=== PATIENT | female | born 1990 | race African-American/Black ===

== ENCOUNTER → 2017-03-22 | Outpatient (CLI) | payer OTHER ==
[2017-03-24 14:01] LABS: ANTITHROMBIN III ACTIVITY 104 % (75-135)
[2017-03-25 08:42] LABS: DILUTE RUSSELL VIPOR VENOM 34.5 sec (0.0-47.0); HEXAGONAL PHASE PHOSPHOLIPID 4 sec (0-11); THROMBIN TIME 16.7 sec (0.0-20.9)
[2017-03-25 10:56] LABS: BETA-2 GLYCOPROTEIN I IGA AB <9 (0-25)
[2017-03-25 10:58] LABS: LUPUS PANEL INTERPRETATION Comment: (.); PTT-LA 46.1 sec (0.0-43.6); PTT-LA MIX 42.4 sec (0.0-40.6)
== END ==
LOC: OD 16:27
PROVIDERS: ATTEND Specialist
DX: N96 Recurrent pregnancy loss (principal)
CPT/HCPCS: 36415; 81241; 83520; 85300; 85301; 86146; 86225; 86235

== ENCOUNTER 2017-06-02 22:28 | Outpatient (CLI) | payer OTHER ==
[2017-06-02 22:55] LABS: APPEARANCE,URINE CLEAR; BILIRUBIN,URINE NEGATIVE (NEGATIVE); GLUCOSE, URINE NEGATIVE (NEGATIVE); KETONES,URINE NEGATIVE (NEGATIVE); LEUKOCYTE ESTERASE,URINE NEGATIVE (NEGATIVE); NITRITE,URINE NEGATIVE (NEGATIVE); PROTEIN,URINE NEGATIVE (NEGATIVE); URINE SPECIFIC GRAVITY 1.004; UROBILINOGEN,URINE NEGATIVE mg/dL (<2.0)
[2017-06-02 23:08] LABS: URINE BARBITURATES SCREEN NEGATIVE; URINE METHADONE SCREEN NEGATIVE; URINE OPIATES LOW NEGATIVE; URINE PHENCYCLIDINE SCREEN NEGATIVE
--- NOTE | 2017-06-03 00:23 | Non Stress Test Report ---
Non Stress Test Datetime Report Generated by CPN: 06/03/2017 00:23 DEMOGRAPHIC EGA NST: 33.4 INDICATION Indication for Study: Ordered by Provider MONITORING Monitor Explained: Monitor Explained; Test Explained; Patient Verbalized Understanding Time on Monitor: 06/02/2017 22:42 Time off Monitor: 06/02/2017 23:39 NST Duration: 57 NST INTERVENTIONS NST Interventions: Reposition Patient Physician Notified NST: Dr. Harper BABY A: [id number] BABY A Movement : Present Contraction Frequency : none FHR Baseline : 145 Accelerations : 15X15 Decelerations : None Variability : Moderate 6-25bpm NST Review: Meets Criteria for Reactive NST NST Review and Verified By : Triny Bourgeois, RN NST Results: Reactive NST REPORT Report Trigger: Send Report
--- NOTE | 2017-06-03 00:36 | RADIOLOGY REPORT (SQ) ---
EXAM DESCRIPTION: U/S OB LIMITED COMPLETED DATE/TIME: 06/02/2017 11:59 pm REASON FOR STUDY: cervical length COMPARISON: None. TECHNIQUE: Limited transvaginal and transabdominal grayscale ultrasound for evaluation of specific r equested obstetrical parameters. LIMITATIONS: None. FINDINGS: CERVICAL LENGTH: 3.8 cm Closed. FHR: 152 beats per minute. PRESENTATION: Cephalic. OTHER: No other significant findings. IMPRESSION: LIMITED OBSTETRICAL ULTRASOUND WITH MEASURED PARAMETERS DELINEATED ABOVE. Trimester of : Third trimester - 28 weeks to delivery. TECHNICAL DOCUMENTATION: JOB ID: [id number] [employer]- All Rights Reserved
== END 2017-06-03 00:31 | disposition home or self-care (01) ==
LOC: LC 22:28
PROVIDERS: ATTEND Student in an Organized Health Care Education/Training Program
PROC: 4A1HXCZ Monitoring of Products of Conception, Cardiac Rate, External Approach (ICD-10-PCS; principal; 2017-06-02)
DX: O47.03 False labor before 37 completed weeks of gestation, third trimester (principal); Z3A.33 33 weeks gestation of pregnancy
CPT/HCPCS: 59025; 76815; 80307; 81001

== ENCOUNTER 2017-07-09 09:13 | Outpatient (CLI) | payer OTHER ==
[2017-07-09 10:12] LABS: APPEARANCE,URINE SLIGHTLY-CLOUDY; BILIRUBIN,URINE NEGATIVE (NEGATIVE); GLUCOSE, URINE NEGATIVE (NEGATIVE); KETONES,URINE NEGATIVE (NEGATIVE); LEUKOCYTE ESTERASE,URINE NEGATIVE (NEGATIVE); NITRITE,URINE NEGATIVE (NEGATIVE); PROTEIN,URINE NEGATIVE (NEGATIVE); UROBILINOGEN,URINE NEGATIVE mg/dL (<2.0)
--- NOTE | 2017-07-09 10:40 | Non Stress Test Report ---
Non Stress Test Datetime Report Generated by CPN: 07/09/2017 10:40 DEMOGRAPHIC EGA NST: 38.6 INDICATION Indication for Study: Other Indication for Study (NST) Other: blood clot x1 MONITORING Monitor Explained: Monitor Explained; Test Explained; Patient Verbalized Understanding Time on Monitor: 07/09/2017 09:38 Time off Monitor: 07/09/2017 10:39 NST Duration: 61 NST INTERVENTIONS NST Interventions: None BABY A: [id number] BABY A Movement : Present Contraction Frequency : rare FHR Baseline : 145 Accelerations : 15X15 Decelerations : None Variability : Moderate 6-25bpm NST Review: Meets Criteria for Reactive NST NST Review and Verified By : HCeci Melly, RN NST Results: Reactive NST REPORT Report Trigger: Send Report
[2017-07-09 10:52] LABS: URINE BARBITURATES SCREEN NEGATIVE; URINE METHADONE SCREEN NEGATIVE; URINE OPIATES LOW NEGATIVE; URINE PHENCYCLIDINE SCREEN NEGATIVE
== END 2017-07-09 10:49 | disposition home or self-care (01) ==
LOC: LC 09:13
PROVIDERS: ATTEND Obstetrics & Gynecology
PROC: 4A1HXCZ Monitoring of Products of Conception, Cardiac Rate, External Approach (ICD-10-PCS; principal; 2017-07-09)
DX: O88.213 Thromboembolism in pregnancy, third trimester (principal); Z3A.38 38 weeks gestation of pregnancy
CPT/HCPCS: 59025; 80307; 81005

== ENCOUNTER 2017-07-11 06:16 | Inpatient (IN) | payer OTHER ==
[2017-07-08 12:28] LABS: ABSOLUTE EOSINOPHILS # (AUTO) 0.2 10^3/uL (0.0-0.6); ABSOLUTE LYMPHOCYTES (AUTO) 1.3 10^3/uL (0.5-4.7); BASOPHILS % (AUTO) 0.1 % (0-2); EOSINOPHILS % (AUTO) 1.7 % (0-6); HEMATOCRIT 33.8 % (36.0-47.0); HEMOGLOBIN 11.4 g/dL (12.0-15.5); HGB HCT DIFFERENCE 0.4; LYMPHOCYTES % (AUTO) 13.5 % (13-45); MEAN CORPUSCULAR HGB CONC 33.8 g/dL (32.0-36.0); MEAN CORPUSCULAR VOLUME 80 fl (80-97); MONOCYTES % (AUTO) 10.4 % (3-13); RED BLOOD COUNT 4.23 10^6/uL (3.72-5.28); SEGMENTED NEUTROPHILS % (AUTO) 74.3 % (42-78); WHITE BLOOD COUNT 9.4 10^3/uL (4.0-10.5)
[2017-07-08 12:30] LABS: APPEARANCE,URINE CLEAR; BILIRUBIN,URINE NEGATIVE (NEGATIVE); GLUCOSE, URINE NEGATIVE (NEGATIVE); KETONES,URINE NEGATIVE (NEGATIVE); LEUKOCYTE ESTERASE,URINE NEGATIVE (NEGATIVE); NITRITE,URINE NEGATIVE (NEGATIVE); PROTEIN,URINE NEGATIVE (NEGATIVE); URINE SPECIFIC GRAVITY 1.006; UROBILINOGEN,URINE NEGATIVE mg/dL (<2.0)
[2017-07-08 12:50] LABS: URINE BARBITURATES SCREEN NEGATIVE; URINE METHADONE SCREEN NEGATIVE; URINE OPIATES LOW NEGATIVE; URINE PHENCYCLIDINE SCREEN NEGATIVE
[~2017-07-11 06:16] MED LIST: LACTATED RINGERS 1000 ML IV PRN; LIDOCAINE 0.5% INJ-PF (5 MG/ML) 50 ML SDV SUBCUT PRN
[2017-07-11] MEDS ORDERED: RINGERS SOLUTION,LACTATED 1,000 ML IV PRN (07:11)
[2017-07-11] MEDS ORDERED: CEFAZOLIN 1 GM/D5W RTU 1 GM/50 ML RTUPB IV PRN (07:14)
[2017-07-11] MEDS ORDERED: INFLUENZA ADLT QUAD (36MOS+) 2017-18 VAC 0.5 ML SYR IM PRN (07:57)
[2017-07-11] MEDS ORDERED: RINGERS SOLUTION,LACTATED 1,500 ML IV PRN (08:10)
[2017-07-11] MEDS ORDERED: MORPHINE SULFATE 10 MG/ML INJ IV PRN (08:52)
[2017-07-11] MEDS ORDERED: FENTANYL CITRATE INJ/PF 100 MCG/2 ML AMPUL IV PRN ×3 (08:52)
[2017-07-11] MEDS ORDERED: PROMETHAZINE HCL INJ 25 MG/1 ML VIAL IV PRN ×2 (08:52)
[2017-07-11] MEDS ORDERED: MEPERIDINE HCL/PF INJ 25 MG/1 ML DISP.SYRIN IV PRN (08:52)
[2017-07-11] MEDS ORDERED: ONDANSETRON HCL INJ/PF 4 MG/2 ML SDV IV PRN ×2 (08:52→14:27)
[2017-07-11] MEDS ORDERED: DIPHENHYDRAMINE HCL 50 MG/ML VIAL IV PRN (08:52)
[2017-07-11] MEDS ORDERED: EPHEDRINE SULFATE INJ 50 MG/1 ML AMPULE ONE (09:00)
[2017-07-11] MEDS ORDERED: OXYTOCIN/NORMAL SALINE 20 UNIT/1,000 ML RTUINJ ONE (09:00)
[2017-07-11] MEDS ORDERED: OXYTOCIN 10 UNIT/ML VIAL ONE (09:00)
[2017-07-11] MEDS ORDERED: MIDAZOLAM 2 MG/2 ML INJ ONE (09:01)
[2017-07-11] MEDS ORDERED: FENTANYL CITRATE INJ/PF 100 MCG/2 ML AMPUL ONE ×2 (09:01→11:40)
[2017-07-11] MEDS ORDERED: ACETAMINOPHEN 100 ML IV ONE (09:15)
[2017-07-11] MEDS ORDERED: ONDANSETRON HCL INJ/PF 4 MG/2 ML SDV ONE ×2 (10:39→13:56)
[2017-07-11] MEDS ORDERED: OXYTOCIN/NORMAL SALINE 20 UNIT/1,000 ML RTUINJ INJ PRN (10:46)
--- NOTE | 2017-07-11 10:58 | OPERATIVE REPORT E ---
Operative Report NAME: LORA GONZALEZ : 1990 AGE: 26Y DATE OF SURGERY: 07/11/2017 ROOM: 219 PREOPERATIVE DIAGNOSES: 1. A 39-week intrauterine . 2. History of section for repeat. POSTOPERATIVE DIAGNOSES: 1. A 39-week intrauterine . 2. History of section for repeat. SURGEON: Real Lambert D.O. MEDIA SUPERVISOR: None. PROCEDURE: Repeat low transverse section. ANESTHESIA: Spinal. COMPLICATIONS: None. PATHOLOGY: None. ESTIMATED BLOOD LOSS: 600 mL. FINDINGS: 1. Viable male infant at 9:45 a.m. on 07/11/2017. Apgars 8 at one, 9 at five. 2. Normal-appearing bilateral fallopian tubes and ovaries. DESCRIPTION OF PROCEDURE: The patient was taken to the operating room where a spinal anesthesia was administered. Once this was done, she was placed in the dorsal supine position with a leftward tilt upon the operating room table. She was then prepped and draped in a normal sterile fashion. A scalpel was then used to make a Pfannenstiel skin incision. The skin incision was carried down through subcutaneous tissue to the layer of the fascia. The fascia was then incised midline. Fascial incision was then extended bilaterally using the Bovie cautery. The superior fascial edge was grasped with Feroz clamps, elevated, and the rectus muscle was dissected off sharply and bluntly. Attention was then turned to the inferior fascial edge, which was grasped with Feroz clamps, elevated, and the rectus muscle was dissected off sharply and bluntly. Rectus muscles were then in the midline, peritoneum identified and entered bluntly with the surgeon's hands. A bladder blade was then inserted. A scalpel was then used to make a low transverse hysterotomy incision. The was found to be in cephalic position and delivered through this incision without difficulty and atraumatically. The nose and mouth were suctioned. Cord was clamped and cut, and the was handed off to the awaiting nurses. Cord blood was obtained. The placenta was then manually removed from the uterus. The uterus was then exteriorized and cleared of all clots and debris. The hysterotomy incision was then reapproximated using 2 layers of 1-0 Vicryl in a running, locking fashion. Following closure of the second layer, excellent hemostasis was noted. The uterus was then returned to the abdomen. The bilateral pericolic gutters were irrigated and cleared of all clots and debris. Again, the hysterotomy incision was reinspected and found to have excellent hemostasis. The rectus muscles were then reapproximated using 1-0 Vicryl interrupted sutures. The fascia was then closed using 1-0 Vicryl in a running, non-locking fashion. The subcutaneous tissue space was then made hemostatic using Bovie cautery. The skin was then closed with absorbable isabella, covered with an OpSite and then with a pressure dressing. At this point in time, the procedure was terminated. All sponge, lap, and needle counts were correct x2. The patient tolerated the procedure well. The patient was taken to the recovery room in stable condition. DICTATING PHYSICIAN: Real Lambert DO [id number] PHY#: [id number] ID: [id number] JOB#: [id number] ACCT: [id number] cc:Real Lambert D.O. >
[2017-07-11] MEDS ORDERED: OXYCODONE-ACETAMINOPHEN 5-325 MG TABLET PO PRN (11:00)
[2017-07-11] MEDS ORDERED: ACETAMINOPHEN 325 MG TABLET PO PRN (11:00)
[2017-07-11] MEDS ORDERED: PROMETHAZINE HCL INJ 25 MG/1 ML VIAL IM PRN (11:00)
[2017-07-11] MEDS ORDERED: MEASLES,MUMPS&RUBELLA VACC/PF 0.5 ML VIAL SUBCUT PRN (11:00)
[2017-07-11] MEDS ORDERED: DIPH/PERTUSS(ACELL)/TETANUS VAC/PF 0.5 ML SYR (>=10YO) IM PRN (11:00)
[2017-07-11] MEDS ORDERED: RINGERS SOLUTION,LACTATED 1,000 ML IV SCH (11:00)
[2017-07-11] MEDS ORDERED: SIMETHICONE 80 MG TAB.CHEW PO PRN (11:00)
[2017-07-11] MEDS ORDERED: HYDROMORPHONE HCL INJ/PF 2 MG/ML AMPULE IV PRN (11:00)
[2017-07-11] MEDS ORDERED: KETOROLAC TROMETHAMINE INJ/PF 30 MG/1 ML SDV IV ONE (11:30)
[2017-07-11] MEDS ORDERED: KETOROLAC TROMETHAMINE INJ/PF 30 MG/1 ML SDV ONE (11:57)
[2017-07-11] MEDS: OXYCODONE-ACETAMINOPHEN 5-325 MG TABLET PO PRN ×3 (13:56→23:34)
[2017-07-11] MEDS: KETOROLAC TROMETHAMINE INJ/PF 30 MG/1 ML SDV IV SCH (17:36)
[2017-07-11] MEDS: DOCUSATE SODIUM 100 MG CAPSULE PO SCH (17:36)
[2017-07-12] MEDS: KETOROLAC TROMETHAMINE INJ/PF 30 MG/1 ML SDV IV SCH (01:26)
[2017-07-12] MEDS: OXYCODONE-ACETAMINOPHEN 5-325 MG TABLET PO PRN ×5 (03:35→23:44)
[2017-07-12 06:09] LABS: HEMATOCRIT 27.8 % (36.0-47.0); HEMOGLOBIN 9.6 g/dL (12.0-15.5); MEAN CORPUSCULAR HEMOGLOBIN 27.3 pg (27.0-33.4); MEAN CORPUSCULAR HGB CONC 34.6 g/dL (32.0-36.0); MEAN CORPUSCULAR VOLUME 79 fl (80-97); RED BLOOD COUNT 3.52 10^6/uL (3.72-5.28); RED CELL DISTRIBUTION WIDTH 14.9 % (11.5-14.0); WHITE BLOOD COUNT 14.2 10^3/uL (4.0-10.5)
--- NOTE | 2017-07-12 08:41 | PDOC PROGRESS REPORT ---
Subjective-OB Subjective: Post Delivery Day: 26 year old. Denies any needs at this time. Some dizziness when ambulating. Physical Exam (OB) Vital Signs: Temp Pulse Resp BP Pulse Ox 97.7 F 94 16 113/61 100 07/12/17 08:09 07/12/17 08:09 07/12/17 08:09 07/12/17 08:09 07/12/17 08:09 Intake & Output 07/11/17 07/12/17 07/13/17 06:59 06:59 06:59 Intake Total 3550 Output Total 2825 Balance 725 Weight 84.37 kg - PIH/Pre-Eclampsia Clonus: Negative Headache: Absent Epigastric Pain: No Visual Changes: No - Dressing Removed: No Incision: Dressing Closure Type: Donnell - Lochia Lochia Amount: Small 10-25 ml Lochia Color: Rubra/Red - Abdomen Description: Tender, Soft, Round Hernia Present: No Bowel Sounds: Normoactive Flatus Presence: Absent Stool: No Fundal Description: Firm, Midline Fundal Height: u/u - u/2 Objective-Diagnostic Laboratory: 07/12/17 05:47 07/12/17 05:47 WBC 14.2 H RBC 3.52 L Hgb 9.6 L Hct 27.8 L MCV 79 L MCH 27.3 MCHC 34.6 RDW 14.9 H Plt Count 257
[2017-07-12] MEDS: PRENATAL VITAMIN W-O CA NO5/FE FUMARATE/FA CAPSULE PO SCH (09:01)
[2017-07-12] MEDS: DOCUSATE SODIUM 100 MG CAPSULE PO SCH ×2 (09:01→17:26)
[2017-07-12] MEDS: IBUPROFEN 800 MG TABLET PO SCH ×3 (11:54→23:44)
[2017-07-13] MEDS: OXYCODONE-ACETAMINOPHEN 5-325 MG TABLET PO PRN ×4 (05:14→23:54)
[2017-07-13] MEDS: IBUPROFEN 800 MG TABLET PO SCH ×4 (05:15→23:48)
[2017-07-13] MEDS: DOCUSATE SODIUM 100 MG CAPSULE PO SCH ×2 (09:21→18:01)
[2017-07-13] MEDS: PRENATAL VITAMIN W-O CA NO5/FE FUMARATE/FA CAPSULE PO SCH (09:21)
--- NOTE | 2017-07-13 09:23 | PDOC PROGRESS REPORT ---
Subjective-OB Subjective: Post Delivery Day: 2 26 year old. c/o of back pain is not ready for d/c yet, is tolerating diet, states lochia is stable, pain is better with pain meds, states ambulation made pain worse, is passing gas. Physical Exam (OB) Vital Signs: Temp Pulse Resp BP Pulse Ox 98.2 F 97 14 120/61 100 07/13/17 07:30 07/13/17 07:30 07/13/17 07:30 07/13/17 07:30 07/13/17 07:30 Intake & Output 07/12/17 07/13/17 07/14/17 06:59 06:59 06:59 Intake Total 3550 Output Total 2825 Balance 725 - PIH/Pre-Eclampsia DTR's: 2 + Clonus: Negative Headache: Absent Epigastric Pain: No Visual Changes: No - Dressing Removed: Yes Incision: Dressing Closure Type: op site - Lochia Lochia Amount: Small 10-25 ml Lochia Color: Rubra/Red - Abdomen Description: Tender, Soft, Round Hernia Present: No Fundal Description: Firm, Midline Fundal Height: u/u - u/2 Objective-Diagnostic Laboratory: 07/12/17 05:47 Assessment and Plan(PN) - Assessment and Plan (1) Acute blood loss anemia Is this a current diagnosis for this admission?: Yes Plan: ferrous sulfate increase dietary (2) Delivery by elective caesarean section Is this a current diagnosis for this admission?: Yes Plan: routine postop care anticipate d/c home tomorrow progressive ambulation - Time Spent with Patient Time with patient: Less than 15 minutes Critical Time spent with patient: Less than 15 minutes Medications reviewed and adjusted accordingly: Yes - Disposition Anticipated Discharge: Home Within: within 24 hours
[2017-07-14] MEDS: IBUPROFEN 800 MG TABLET PO SCH ×2 (05:39→11:43)
[2017-07-14] MEDS: OXYCODONE-ACETAMINOPHEN 5-325 MG TABLET PO PRN (08:30)
[2017-07-14 09:19] VITALS: BP 122/71
[2017-07-14] MEDS: PRENATAL VITAMIN W-O CA NO5/FE FUMARATE/FA CAPSULE PO SCH (09:36)
[2017-07-14] MEDS: DOCUSATE SODIUM 100 MG CAPSULE PO SCH (09:36)
--- NOTE | 2017-07-14 12:14 | PDOC DISCHARGE SUMMARY ---
Final Diagnosis Discharge Date: 07/14/17 - Final Diagnosis (1) Status post repeat low transverse section Is this a current diagnosis for this admission?: Yes (2) Acute blood loss anemia Is this a current diagnosis for this admission?: Yes (3) Factor 5 antithrombin Is this a current diagnosis for this admission?: Yes Discharge Data - Discharge Medication Home Medications: Albuterol Sulfate [Albuterol Sulfate Hfa] 1 - 2 puff IH Q4 PRN 07/05/14 Ascorbic Acid [Vitamin C] 1,000 mg PO DAILY 06/02/17 Ferrous Sulfate [Iron] 325 mg PO DAILY 06/02/17 Vit 10/Iron/Folic/Dha [Vitafol-Ob+Dha Combo Pack] 1 each PO DAILY 06/02 Docusate Sodium [Stool Softener] 100 mg PO DAILY 07/07/17 Fluticasone/Salmeterol [Advair 250-50 Diskus 14 Dose/Diskus] 1 inh IH BID Reason(s) for Admission: Ceasarean Section-Repeat Procedures: NST Intrapartum Procedure(s): : Low Cervical, Transverse - Diagnosis Test Laboratory: Temp Pulse Resp BP Pulse Ox 98.3 F 87 16 122/71 99 07/14/17 09:02 07/14/17 09:02 07/14/17 09:02 07/14/17 09:02 07/14/17 09:02 07/08/17 07/08/17 07/12/17 11:30 11:37 05:47 RBC 4.23 3.52 L Hgb 11.4 L 9.6 L Hct 33.8 L 27.8 L Urine Opiates Screen NEGATIVE - Discharge information/Instructions Discharge Activity: Activity As Tolerated, Balance Activity w/Rest, No Driving, No Lifting Over 10 Pounds, No Lifting/Push/Pulling, Pelvic Rest, No tub bath Discharge Diet: Regular Disposition: HOME, SELF-CARE Follow up with: [facility] in: 1, Weeks
== END 2017-07-14 16:25 | disposition home or self-care (01) | DRG 765 ==
LOC: 2S 06:16
PROVIDERS: ADMIT Obstetrics & Gynecology; ATTEND Obstetrics & Gynecology
PROC: 10D00Z1 Extraction of Products of Conception, Low, Open Approach (ICD-10-PCS; principal; 2017-07-11 09:15)
DX: O34.211 Maternal care for low transverse scar from previous cesarean delivery (principal); D62 Acute posthemorrhagic anemia; O99.13 Other diseases of the blood and blood-forming organs and certain disorders involving the immune mechanism complicating the puerperium; D68.59 Other primary thrombophilia; N85.8 Other specified noninflammatory disorders of uterus; O75.89 Other specified complications of labor and delivery; Z3A.39 39 weeks gestation of pregnancy; Z37.0 Single live birth; J45.998 Other asthma; D57.3 Sickle-cell trait
CPT/HCPCS: 1961; 36415; 59025; 80307; 81001; 85025; 85027; 86850; 86900; 86901; 90686; J0131; J1170; J1885; J2250; J2405; J2590; J3010; J3490

== ENCOUNTER 2017-07-18 14:58 | Emergency (ER) | payer OTHER ==
[2017-07-18 15:09] VITALS: BP 135/86
--- NOTE | 2017-07-18 16:20 | ER Document Report ---
ED General - General Chief Complaint: Wound Recheck Stated Complaint: WOUND RECHECK Time Seen by Provider: 07/18/17 16:14 Mode of Arrival: Ambulatory Information source: Patient Notes: Patient states that she recently had a . She states that was approximately 1 week ago. She states she noticed today that the right edge of the wound was opened. She states the wound is not significantly more painful today than it has been. She also states that she has not had a bowel movement since the surgery. Patient denies any vomiting. She states she has been eating normally. No fevers. The pain is mild. It is constant. It is located all about the surgical wound. It is worse when touched and better when left alone. There is no significant radiation of her symptoms. TRAVEL OUTSIDE OF THE [place] IN LAST 30 DAYS: No - Related Data Allergies/Adverse Reactions: latex [Latex] Allergy (Severe, Verified 07/18/17 15:42) Swelling,hives Past Medical History - Social History Smoking Status: Never Smoker Chew tobacco use (# tins/day): No Frequency of alcohol use: None Drug Abuse: None Family History: Reviewed & Not Pertinent Patient has suicidal ideation: No Patient has homicidal ideation: No - Past Medical History Cardiac Medical History: Denies: Hx Coronary Artery Disease, Hx Heart Attack, Hx Hypertension, Hx Pulmonary Embolism, Hx Heart Murmur Pulmonary Medical History: Reports: Hx Asthma - inhalers Denies: Hx Bronchitis, Hx COPD, Hx Pneumonia, Hx Sleep Apnea, Hx Tuberculosis Neurological Medical History: Denies: Hx Cerebrovascular Accident, Hx Migraine, Hx Seizures Endocrine Medical History: Denies: Hx Hyperthyroidism, Hx Hypothyroidism Renal/ Medical History: Denies: Hx Kidney Stones, Hx Ovarian Cysts, Hx Peritoneal Dialysis, Hx Pelvic Inflammatory Disease Malignancy Medical History: Denies: Hx Breast Cancer, Hx Cervical Cancer, Hx Ovarian Cancer GI Medical History: Denies: Hx Gastroesophageal Reflux Disease, Hx Hiatal Hernia , Hx Ulcer Musculoskeltal Medical History: Denies Hx Arthritis, Denies Hx Fibromyalgia Traumatic Medical History: Denies: Hx Fractures Infectious Medical History: Denies: Hx HIV Past Surgical History: Reports: Hx Section - 1 - Immunizations Hx Diphtheria, Pertussis, Tetanus Vaccination: Yes Review of Systems - Review of Systems Constitutional: denies: Chills, Fever Cardiovascular: denies: Chest pain, Syncope Gastrointestinal: Abdominal pain. denies: Diarrhea, Vomiting Genitourinary: denies: Burning, Dysuria Physical Exam - Vital signs Vitals: Temp Pulse Resp BP Pulse Ox 98.5 F 85 20 135/86 H 99 07/18/17 15:04 07/18/17 15:04 07/18/17 15:04 07/18/17 15:04 07/18/17 15:04 Interpretation: Normal, Hypertensive, Other - Mild hypertension - General General appearance: Appears well, Alert - HEENT Head: Normocephalic, Atraumatic Eyes: Normal Pupils: PERRL - Respiratory Respiratory status: No respiratory distress Chest status: Nontender Breath sounds: Normal Chest palpation: Normal - Cardiovascular Rhythm: Regular Heart sounds: Normal auscultation Murmur: No - Abdominal Inspection: Normal Distension: No distension Bowel sounds: Normal Tenderness: Other - Patient does have diffuse tenderness about the wound consistent with postoperative tenderness. The wound is dehisced for the last 4- 5 cm of the right part of the incision. There does appear to be a possible infectious adherent mucoid on the surface of the dermis. There is no significant surrounding induration or erythema. There is no discharge. Organomegaly: No organomegaly - Back Back: Normal, Nontender - Extremities General upper extremity: Normal inspection, Nontender, Normal color, Normal ROM , Normal temperature General lower extremity: Normal inspection, Nontender, Normal color, Normal ROM , Normal temperature, Normal weight bearing. No: Jeff's sign - Neurological Neuro grossly intact: Yes Cognition: Normal Orientation: AAOx4 [place] Coma Scale Eye Opening: Spontaneous [place] Coma Scale Verbal: Oriented [place] Coma Scale Motor: Obeys Commands Awilda Coma Scale Total: 15 Speech: Normal Motor strength normal: LUE, RUE, LLE, RLE Sensory: Normal - Psychological Associated symptoms: Normal affect, Normal mood - Skin Skin Temperature: Warm Skin Moisture: Dry Skin Color: Normal Course - Vital Signs Vital signs: Temp Pulse Resp BP Pulse Ox 98.5 F 85 20 135/86 H 99 07/18/17 15:04 07/18/17 15:04 07/18/17 15:04 07/18/17 15:04 07/18/17 15:04 Discharge - Discharge Clinical Impression: Wound dehiscence, Constipation Condition: Stable Disposition: HOME, SELF-CARE Instructions: Wound Infection ([facility]), Constipation ([facility]) Additional Instructions: Please follow-up with your [employer] provider tomorrow as scheduled Prescriptions: Cephalexin Monohydrate [Keflex 500 mg Capsule] 500 mg PO Q6H 5 Days capsule Peg 3350/Na Sulf,Bicarb,Cl/KCl [Golytely Solution 4000 ml] 4,000 ml PO DAILY #1 bottle Forms: Elevated Blood Pressure
== END 2017-07-18 16:32 | disposition home or self-care (01) ==
LOC: ER 14:58
DX: O86.0 Infection of obstetric surgical wound (principal); K59.00 Constipation, unspecified
CPT/HCPCS: 99282